=== PATIENT | male | born 1945 | race Caucasian/White ===

== ENCOUNTER 2019-05-21 15:54 | Emergency (ER) | payer MEDICARE, BC ==
--- NOTE | 2019-05-21 16:18 | UC ---
Throat Pain/Nasal Williams HPI - HPI Summary HPI Summary: 73 yo with ongoing chest congestion for several weeks. In the morning he has a cough productive No fever, chills or myalgias. Initially treated with augmentin for 10 days, followed by azithromycin last week. The course was completed today. He has a hx of sinusitis and bronchitis, and continues to smoke. Appetite is normal. He has not had infectious contacts and has only been to the [facility] once in the past 4 weeks. - History of Current Complaint Stated Complaint: CONGESTION, EAR ACHE Hx Obtained From: Patient Onset/Duration: Gradual Onset, Lasting Weeks Severity: Moderate Cough: Productive - qam he brings up brown sputum. Associated Signs & Symptoms: Positive: Sinus Discomfort - Epiglottits Risk Factors Epiglottis Risk Factors: Negative - Allergies/Home Medications Allergies/Adverse Reactions: Allergies Allergy/AdvReac Type Severity Reaction Status Date / Time doxycycline Allergy Flushing Verified 05/21/19 16:16 Home Medications: Home Medications Amitriptyline TAB* [Elavil TAB*] 30 mg PO BEDTIME 12/18/16 [History Confirmed ] Atorvastatin* [Lipitor*] 5 mg PO DAILY 12/18/16 [History Confirmed 05/21/19] Gabapentin CAP(*) [Neurontin 300 CAP(*)] 300 mg PO TID 12/18/16 [History Confirmed 05/21/19] Pantoprazole Sodium 40 mg PO DAILY 12/18/16 [History Confirmed 05/21/19] Zolpidem TAB* [Ambien TAB*] 10 mg PO BEDTIME PRN 12/18/16 [History Confirmed 08/03] dilTIAZem HCl [Cardizem 30 MG TAB] 30 mg PO DAILY 12/18/16 [History Confirmed ] Albuterol HFA INHALER* [Ventolin HFA Inhaler*] 1 puff INH Q6H PRN 05/21/19 [ History Confirmed 05/21/19] Levothyroxine TAB* [Synthroid 25 MCG TAB*] 1 tab DAILY 05/21/19 [History Confirmed 05/21/19] predniSONE [Prednisone 20 MG TAB] 40 mg PO DAILY #10 tablet 05/21/19 [Rx] PMH/Surg Hx/FS Hx/Imm Hx Endocrine History: Hypothyroidism, Dyslipidemia Respiratory History: Bronchitis GI/ History: Gastroesophageal Reflux - with esophageal spasm - Surgical History Surgical History: Yes Surgery Procedure, Year, and Place: esophageal repair 2017 - Family History Known Family History: Positive: Hypertension - Social History Occupation: Retired Lives: With Family Alcohol Use: None Substance Use Type: None Smoking Status (MU): Light Every Day Tobacco Smoker Amount Used/How Often: 1/2 PPD - Immunization History Most Recent Influenza Vaccination: 2017 Most Recent Pneumonia Vaccination: 2016 Review of Systems All Other Systems Reviewed And Are Negative: Yes Constitutional: Positive: Negative. Negative: Fever, Fatigue Skin: Positive: Negative Eyes: Positive: Negative ENT: Positive: Ear Ache, Sinus Congestion Respiratory: Positive: Cough. Negative: Shortness Of Breath Cardiovascular: Negative: Palpitations, Chest Pain Gastrointestinal: Positive: Other - hx of esophageal spasm--takes diltiazem for this, not due to hypertension or cardiac problem. Motor: Positive: Negative Neurovascular: Positive: Negative Musculoskeletal: Positive: Negative Neurological/Mental Status: Positive: Negative. Negative: Headache Psychological: Positive: Negative Is Patient Immunocompromised?: No Physical Exam Triage Information Reviewed: Yes Appearance: Well-Appearing, No Pain Distress Eye Exam: Normal ENT: Positive: Pharyngeal erythema - with post nasal drainage., TM dull - right TM retracted. Respiratory: Positive: Lungs clear, Normal breath sounds, No respiratory distress Cardiovascular: Positive: RRR, No Murmur Musculoskeletal Exam: Normal Neurological Exam: Normal Psychological Exam: Normal Skin Exam: Normal Diagnostics - Radiology No standard instances Radiology Interpretation Completed By: Radiologist - Patient Name: CHRISTOPHER GUERRERO Medical Record#: [id number] Ordering Physician: Cyn Lizarraga MD Acct.#: [id number] : Age: 73 Sex: M Location: [facility] Exam Date: 05/21/19 1650 ADM Status: REG ER Order Information: CHEST PA & LAT 2 VWS Accession Number: [id number] CPT: 04813 INDICATION: Cough and chest congestion for 4 weeks. COPD. COMPARISON: No relevant prior exams available on the [facility] for comparison. TECHNIQUE: Dual energy PA and lateral views of the chest obtained. REPORT: Elevated lung volumes and both diffuse mild prominence of the interstitial markings and patchy rarefaction of the mid to upper lung zone interstitial markings. Clear lungs and pleural spaces. Negative for pneumothorax. The heart, pulmonary vasculature, and mediastinal contours are unremarkable. Unremarkable osseous structures and soft tissue contours. IMPRESSION: #. Stigmata of obstructive lung disease. No acute pulmonary or cardiac process evident. <Electronically signed by Jt Gutierres MD in [place]> 05/21/191706 Dictated By: Jt Gutierres MD Dictated Date/Time: 05/21/191705 Transcribed Date/Time: 05/21/191705 Copy to: CC:Laury Kemp ANODIC OPERATOR; Cyn Lizarraga MD Imaging - [facility] [address] [address] ph [phone] ph ([phone]) ph ([phone]) This report is only to be considered final once signed by the Provider(s) as displayed in the "< Electronically Signed by >" field (s). Absence of a signature indicates the report is in a draft status and still needs to be finalized. In the event this document was created by someone other than the signing Provider, the individual initiating the document will be listed in the "Entered by:" or "Dictated by:" power. 1 of 1 Throat Pain/Nasal Course/Dx - Course Course Of Treatment: Given persistent congestion, suggested course of prednisone. He could also have increase in reflux, although he has no apparent trigger for this. Could double pantoprazole for several days. - Differential Dx/Diagnosis Differential Diagnosis/HQI/PQRI: Sinusitis, Other - serous otitis media, environmental allergies. Reflux esophagitis. Provider Diagnosis: Chronic serous otitis media, right ear, Reflux esophagitis Discharge ED - Sign-Out/Discharge Documenting (check all that apply): Patient Departure All imaging exams completed and their final reports reviewed: Yes - Discharge Plan Condition: Stable Disposition: HOME Prescriptions: predniSONE [Prednisone 20 MG TAB] 40 mg PO DAILY #10 tablet Patient Education Materials: Serous Otitis Media (ED) Referrals: Laury Kemp [Primary Care Provider] - Additional Instructions: Your right ear pain is related to persistent middle ear fluid. Your chest xray is normal and clinically you do not have findings to suggest ongoing bacterial infection. Your chest congestion could be related to sinus drainage, or possibly to increased reflux. I suggest that you use prednisone 40mg once daily with food to decrease congestion. This could worsen reflux symptoms, but should help your ear pain and the postnasal drainage. - Billing Disposition and Condition Condition: STABLE Disposition: Home
[2019-05-21 16:42] VITALS: BP 138/87
== END 2019-05-21 17:40 | disposition home or self-care (01) ==
LOC: UCCORT 15:54
DX: H65.21 Chronic serous otitis media, right ear (principal); K21.0 Gastro-esophageal reflux disease with esophagitis; E03.9 Hypothyroidism, unspecified; E78.5 Hyperlipidemia, unspecified; Z79.890 Hormone replacement therapy; Z88.1 Allergy status to other antibiotic agents; Z79.899 Other long term (current) drug therapy; F17.200 Nicotine dependence, unspecified, uncomplicated
CPT/HCPCS: 71046; 99212; G0463